=== PATIENT | female | born 1985 | race Caucasian/White ===

== ENCOUNTER 2018-07-05 03:51 | Emergency (ER) | END 2018-07-05 06:32 | disposition home or self-care (01) ==

== ENCOUNTER 2019-03-19 16:24 | Emergency (ER) | payer MEDICAID ==
[~2019-03-19] VITALS: Wt 104.9 kg
[~2019-03-19 16:24] MED LIST: CARI350T; CIPR500T4 PO; HYDR-3980 PO; NORCO; ONDA4TAB14 PO
[2019-03-19] MEDS ORDERED: KETOROLAC 30 MG INJ IM STA (16:58)
--- NOTE | 2019-03-19 17:17 | ERD ---
ER Documentation Chief Complaint Chief Complaint RIGHT UPPER QUADRANT SINCE THIS MORNING. NO N/V. NO DIARRHEA. HPI 33-year-old female with no reported past medical surgical history who presents with complaint of right upper quadrant abdominal pain since this morning. She denies associated fevers, chills, nausea, vomiting, diarrhea, radiation of pain, urinary symptoms, vaginal bleeding or discharge. Having regular bowel movements and passing gas without issue. No reported sick contacts or new medication use. Has distant history of gallstones proximally 8 years ago during . Has not had any issues since that time and thus has not had any further evaluation by specialist. Reports last menstrual. About 2 days ago and reported as normal. She otherwise is without complaint and nontoxic-appearing at the time of evaluation with normal triage vital signs. Denies any drug or alcohol abuse. ROS All systems reviewed and are negative except as per history of present illness. Medications Home Meds Active Scripts Naproxen* (Naprosyn*) 500 Mg Tablet, 500 MG PO BID PRN for PAIN AND/OR INFLAMMATION, #30 TAB Prov:NELSY FREIRE PA-C 03/19/19 Tramadol HCl (Tramadol HCl) 50 Mg Tablet, 50 MG PO Q4 PRN for PAIN, #20 TAB Prov:NELSY FREIRE PA-C 03/19/19 Ondansetron (Ondansetron Odt) 4 Mg Tab.rapdis, 4 MG PO Q6H PRN for NAUSEA AND/OR VOMITING, #10 TAB Prov:NELLA CARTWRIGHT 07/05/18 Hydrocodone/Acetaminophen (Mesa 10-325 Tablet) 1 Each Tablet, 1 TAB PO Q6H PRN for PAIN, #20 TAB Prov:NELLA CARTWRIGHT 07/05/18 Ciprofloxacin Hcl* (Ciprofloxacin Hcl*) 500 Mg Tablet, 500 MG PO BID for 5 Days, TAB Prov:NELLA CARTWRIGHT 07/05/18 Reported Medications Carisoprodol* (Soma*) 350 Mg Tablet 04/20/12 [Mesa] No Conflict Check 04/20/12 Allergies Allergies: Coded Allergies: No Known Allergy (Verified , 06/01/14) PMhx/Soc History of Surgery: No Anesthesia Reaction: No Hx Neurological Disorder: No Hx Respiratory Disorders: No Hx Cardiac Disorders: No Hx Psychiatric Problems: No Hx Miscellaneous Medical Probl: Yes (GALL STONE) Hx Alcohol Use: No Hx Substance Use: No Hx Tobacco Use: No FmHx Family History: No diabetes, No coronary disease, No other Physical Exam Vitals Vital Signs Date Temp Pulse Resp B/P (MAP) Pulse Ox O2 O2 Flow FiO2 Time Delivery Rate 03/19/19 97.8 75 18 139/75 100 16:28 (96) Physical Exam I have reviewed the triage vital signs. Const: Well nourished, well developed, appears stated age, obese Eyes: PERRL, no conjunctival injection HENT: NCAT, Neck supple without meningismus CV: RRR, Warm, well-perfused extremities RESP: CTAB, Unlabored respiratory effort GI: soft, tender to deep palpation to right upper quadrant, no rebound or guarding, no CVA tenderness, non-distended, no masses MSK: No gross deformities appreciated Skin: Warm, dry. No rashes Neuro: grossly non focal Psych: Appropriate mood and affect. Result Diagram: 03/19/19 1705 03/19/19 1705 Results 24 hrs Laboratory Tests Test 03/19/19 17:05 03/19/19 17:10 White Blood Count 8.5 10^3/ul Red Blood Count 4.27 10^6/ul Hemoglobin 11.5 g/dl Hematocrit 36.4 % Mean Corpuscular Volume 85.2 fl Mean Corpuscular Hemoglobin 26.9 pg Mean Corpuscular Hemoglobin Concent 31.6 g/dl Red Cell Distribution Width 14.8 % Platelet Count 232 10^3/UL Mean Platelet Volume 11.4 fl Immature Granulocytes % 0.200 % Neutrophils % 59.8 % Lymphocytes % 29.6 % Monocytes % 6.6 % Eosinophils % 3.1 % Basophils % 0.7 % Nucleated Red Blood Cells % 0.0 /100WBC Immature Granulocytes # 0.020 10^3/ul Neutrophils # 5.1 10^3/ul Lymphocytes # 2.5 10^3/ul Monocytes # 0.6 10^3/ul Eosinophils # 0.3 10^3/ul Basophils # 0.1 10^3/ul Nucleated Red Blood Cells # 0.0 10^3/ul Urine Color YELLOW Urine Clarity SLIGHTLY CLOUDY Urine pH 5.0 Urine Specific Woodrow 1.024 Urine Ketones NEGATIVE mg/dL Urine Nitrite NEGATIVE mg/dL Urine Bilirubin NEGATIVE mg/dL Urine Urobilinogen NEGATIVE mg/dL Urine Leukocyte Esterase NEGATIVE Gladis/ul Urine Microscopic RBC 1 /HPF Urine Microscopic WBC 4 /HPF Urine Squamous Epithelial Cells FEW /HPF Urine Mucus FEW /HPF Urine Hemoglobin NEGATIVE mg/dL Urine Glucose NEGATIVE mg/dL Urine Total Protein NEGATIVE mg/dl Sodium Level 141 mmol/L Potassium Level 4.4 mmol/L Chloride Level 106 mmol/L Carbon Dioxide Level 28 mmol/L Anion Gap 7 Blood Urea Nitrogen 11 mg/dl Creatinine 0.72 mg/dl Est Glomerular Filtrat Rate mL/min > 60 mL/min Glucose Level 95 mg/dl Calcium Level 9.5 mg/dl Total Bilirubin 0.4 mg/dl Direct Bilirubin 0.00 mg/dl Indirect Bilirubin 0.4 mg/dl Aspartate Amino Transf (AST/SGOT) 24 IU/L Alanine Aminotransferase (ALT/SGPT) 38 IU/L Alkaline Phosphatase 131 IU/L Total Protein 7.1 g/dl Albumin 3.9 g/dl Globulin 3.20 g/dl Albumin/Globulin Ratio 1.21 Lipase 64 U/L Serum HCG, Qualitative NEGATIVE POC Beta HCG, Qualitative POSITIVE Current Medications Medications Dose Sig/Nancy Start Time Status Last (Trade) Ordered Route PRN Stop Time Admin Dose Reason Admin Ketorolac 30 mg ONCE STAT 03/19/19 DC Tromethamine IM 16:58 03/19/19 (Toradol) 17:01 Procedures/MDM 33 year-old female non- woman presenting with RUQ abdominal pain concerning for bladder disease given location of abdominal pain and risk factors. Considered ectopic patient's blood test negative. Considered causes of female-specific abdominal pain unrelated to (e.g., pelvic inflammatory disease with or without tubo-ovarian abscess, Togj-Lpax-Ictpwj, etc.). Urine POC positive. Despite positive test highly doubt ectopic given exam and pain localized to right upper quadrant with no abdominal pelvic symptoms or findings on exam. Also considered causes of abdominal pain that are not gender-specific (e.g., appendicitis, volvulus, small bowel obstruction, mesenteric adenitis, acute cholecystitis/choledocholithiasis and other biliary pathology, etc.). Patient well-appearing with normal vital signs. Laboratory testing and imaging here reviewed and normal. Patient given strict return precautions for worsening pain, inability to eat/drink, fevers (temperature over 100.4F), or other concerns. Patient instructed to follow up with their primary doctor and is agreeable; all questions were answered. Patient advised to follow-up with her PMD for referral to GI specialist/surgeon. Patient agreeable and to make arrangements with her primary care provider. Will discharge with appropriate pain medication antiemetics ED course: Gallbladder ultrasound with multiple gallstones, nonobstructing, no evidence of cholecystitis UA unremarkable Labs: Unremarkable, no WBC count, lipase within normal limits, liver function within normal limits, renal function normal DISPOSITION PLAN: We discussed follow up with the patient's primary care doctor within 24 to 48 hours. Patient counseled regarding my diagnostic impression and care plan. Prior to discharge all questions answered. Pt agrees with treatment plan and understands strict return precautions. Precautionary instructions provided including instructions to return to the ER if not improving or for any worsening or changing symptoms or concerns. Disclaimer: Inadvertent spelling and grammatical errors are likely due to EHR/dictation software use and do not reflect on the overall quality of patient care. Also, please note that the electronic time recorded on this note does not necessarily reflect the actual time of the patient encounter. Departure Diagnosis: Primary Impression: Abdominal pain Condition: Stable NELSY FREIRE PA-C Mar 19, 2019 17:17
[2019-03-19] MEDS ORDERED: TRAM50TA2 PO (18:22)
[2019-03-19] MEDS ORDERED: NAPR-985 PO (18:22)
[2019-03-19] MEDS ORDERED: ONDA4TAB14 PO (18:31)
[2019-03-19 18:46] VITALS: BP 136/74; PULSE 74; RESP 16
== END 2019-03-19 18:46 | disposition home or self-care (01) ==
LOC: FTE 16:24
DX: R10.11 Right upper quadrant pain (principal)
CPT/HCPCS: 36415; 76705; 80053; 81001; 81003; 81025; 83690; 84703; 85025; J1885

== ENCOUNTER 2019-05-21 17:22 | Emergency (ER) | payer MEDICAID ==
[~2019-05-21] VITALS: Ht 162.6 cm; Wt 104.4 kg
[~2019-05-21 17:22] MED LIST changes: +CEPH-443 PO; +NAPR-985 PO; +TRAM50TA2 PO
[2019-05-21 17:40] VITALS: RESP 20; Ht 162.6 cm; Wt 104.4 kg
[2019-05-21 20:22] VITALS: BP 123/74; PULSE 71
--- NOTE | 2019-05-22 12:43 | ERD ---
ER Documentation Chief Complaint Chief Complaint rashes - possible insect bites ; RLQ pain HPI This is a 33-year-old female presenting to the emergency department complaining of insect bites scattered on her body as well as right suprapubic pain. Her last menstrual cycle was 04-09-2019. She is G4, P3 LC 3 A0. She is reportedly 6 weeks . Her right suprapubic pain currently rated 0/10 in severity and intermittent. She took no medication for relief of symptoms. She denies any vaginal bleeding. She denies any fevers, back pain, or other symptoms currently. ROS All systems reviewed and are negative except as per history of present illness. Medications Home Meds Active Scripts Cephalexin* (Keflex*) 500 Mg Capsule, 500 MG PO TID for 7 Days, CAP Prov:NELLA PEÑA PA-C 05/21/19 Ondansetron (Ondansetron Odt) 4 Mg Tab.rapdis, 4 MG PO Q6H PRN for NAUSEA AND/OR VOMITING, #10 TAB Prov:NELSY FREIRE PA-C 03/19/19 Naproxen* (Naprosyn*) 500 Mg Tablet, 500 MG PO BID PRN for PAIN AND/OR INFLAMMATION, #30 TAB Prov:NELSY FREIRE PA-C 03/19/19 Tramadol HCl (Tramadol HCl) 50 Mg Tablet, 50 MG PO Q4 PRN for PAIN, #20 TAB Prov:NELSY FREIRE PA-C 03/19/19 Ondansetron (Ondansetron Odt) 4 Mg Tab.rapdis, 4 MG PO Q6H PRN for NAUSEA AND/OR VOMITING, #10 TAB Prov:NELLA CARTWRIGHT 07/05/18 Hydrocodone/Acetaminophen (Royal 10-325 Tablet) 1 Each Tablet, 1 TAB PO Q6H PRN for PAIN, #20 TAB Prov:NELLA CARTWRIGHT 07/05/18 Ciprofloxacin Hcl* (Ciprofloxacin Hcl*) 500 Mg Tablet, 500 MG PO BID for 5 Days, TAB Prov:NELLA CARTWRIGHT 07/05/18 Reported Medications Carisoprodol* (Soma*) 350 Mg Tablet 04/20/12 [Royal] No Conflict Check 04/20/12 Allergies Allergies: Coded Allergies: No Known Allergy (Verified , 06/01/14) PMhx/Soc Medical and Surgical Hx: pt denies Surgical Hx History of Surgery: No Anesthesia Reaction: No Hx Neurological Disorder: No Hx Respiratory Disorders: No Hx Cardiac Disorders: No Hx Psychiatric Problems: No Hx Miscellaneous Medical Probl: Yes (GALL STONE) Hx Alcohol Use: No Hx Substance Use: No Hx Tobacco Use: No Smoking Status: Never smoker Physical Exam Vitals Vital Signs Date Temp Pulse Resp B/P (MAP) Pulse Ox O2 O2 Flow FiO2 Time Delivery Rate 05/21/19 71 123/74 20:22 (90) 05/21/19 98.4 76 20 137/70 100 17:40 (92) Physical Exam Const: No acute distress Head: Atraumatic Eyes: Normal Conjunctiva ENT: Normal External Ears, Nose and Mouth. Neck: Full range of motion. No meningismus. Resp: Clear to auscultation bilaterally Cardio: Regular rate and rhythm, no murmurs Abd: Soft, non tender, non distended. Normal bowel sounds Skin: No petechiae or rashes Back: No midline or flank tenderness Ext: No cyanosis, or edema Neur: Awake and alert Psych: Normal Mood and Affect Result Diagram: 05/21/19190105/21/191901 Results 24 hrs Laboratory Tests Test 05/21/19 19:02 White Blood Count 10.9 10^3/ul Red Blood Count 4.51 10^6/ul Hemoglobin 12.3 g/dl Hematocrit 39.1 % Mean Corpuscular Volume 86.7 fl Mean Corpuscular Hemoglobin 27.3 pg Mean Corpuscular Hemoglobin Concent 31.5 g/dl Red Cell Distribution Width 14.6 % Platelet Count 244 10^3/UL Mean Platelet Volume 11.3 fl Immature Granulocytes % 0.400 % Neutrophils % 65.6 % Lymphocytes % 24.3 % Monocytes % 6.4 % Eosinophils % 2.9 % Basophils % 0.4 % Nucleated Red Blood Cells % 0.0 /100WBC Immature Granulocytes # 0.040 10^3/ul Neutrophils # 7.1 10^3/ul Lymphocytes # 2.6 10^3/ul Monocytes # 0.7 10^3/ul Eosinophils # 0.3 10^3/ul Basophils # 0.0 10^3/ul Nucleated Red Blood Cells # 0.0 10^3/ul Urine Color YELLOW Urine Clarity SLIGHTLY CLOUDY Urine pH 5.0 Urine Specific Mccammon 1.024 Urine Ketones NEGATIVE mg/dL Urine Nitrite NEGATIVE mg/dL Urine Bilirubin NEGATIVE mg/dL Urine Urobilinogen NEGATIVE mg/dL Urine Leukocyte Esterase 1+ Gladis/ul Urine Microscopic RBC 2 /HPF Urine Microscopic WBC 6 /HPF Urine Squamous Epithelial Cells FEW /HPF Urine Mucus FEW /HPF Urine Hemoglobin NEGATIVE mg/dL Urine Glucose NEGATIVE mg/dL Urine Total Protein NEGATIVE mg/dl Sodium Level 140 mmol/L Potassium Level 3.8 mmol/L Chloride Level 105 mmol/L Carbon Dioxide Level 25 mmol/L Anion Gap 10 Blood Urea Nitrogen 10 mg/dl Creatinine 0.64 mg/dl Est Glomerular Filtrat Rate mL/min > 60 mL/min Glucose Level 87 mg/dl Calcium Level 9.6 mg/dl Total Bilirubin 0.3 mg/dl Direct Bilirubin 0.00 mg/dl Indirect Bilirubin 0.3 mg/dl Aspartate Amino Transf (AST/SGOT) 26 IU/L Alanine Aminotransferase (ALT/SGPT) 34 IU/L Alkaline Phosphatase 126 IU/L Total Protein 8.1 g/dl Albumin 4.5 g/dl Globulin 3.60 g/dl Albumin/Globulin Ratio 1.25 Beta HCG, Quantitative 92702.0 mIU/ml [place] [address] Radiology Main Line: [phone] DIAGNOSTIC IMAGING REPORT Patient: ABIGAIL LOPEZ : 1985 Age: 33 Sex: F MR #: [id number] DOS: 05/21/19 1853 Ordering MD: NELLA PEÑA PA-C Location: [facility] Room/Bed: PROCEDURE: US Obstetrical 1st Trimester CLINICAL INDICATION: with right-sided pelvic pain TECHNIQUE: Multiple real-time images were acquired of the patient's maternal abdomen utilizing a curved array transducer. COMPARISON: None FINDINGS: The uterus is anteverted and normal in size measuring . There is a well implanted gestational sac within the fundus of the uterus with a mean sac diameter of 2.10 cm which corresponds to a gestational sac age of 6 weeks 6 days. A yolk sac is identified. There is a single pole with a crown-rump length of 0.52 cm which corresponds to a gestational age of 6 weeks 2 days plus or minus 3 days. There is positive cardiac activity being at 124 beats per minute. The right ovary measures 3.2 x 2.5 x 2.0 cm and appears normal. The left ovary measures 2.8 x 2.1 x 1.4 cm and appears normal. Vascular flow is demonstrated in each ovary on Doppler. No adnexal mass or free fluid is identified IMPRESSION: 1. Single live intrauterine fetus which by ultrasound corresponds to a gestational age of 6 weeks 4 days plus or minus 3 days. The estimated date of delivery based on today's sonogram is 01/10/2020. 2. The heart rate is 124 bpm. 3. Normal appearing ovaries with each demonstrating vascular flow on Doppler. 4. No adnexal mass or free fluid is evident. Physician Giovanny Date Time Electronically viewed and signed by Physician Giovanny on 05/21/2019 19:53 RH/ CC: NELLA PEÑA PA-C [phone] Procedures/MDM This is a 33-year-old female presenting to the emergency department complaining of right pelvic pain. She is reportedly 6 weeks . Her CBC and CMP are within normal limits. No evidence of significant leukocytosis or anemia. No evidence of electrolyte imbalance or kidney or liver failure. Urinalysis shows 1+ leukocyte esterase concerning for mild urinary tract infection. Ultrasound reveals single live intrauterine gestation of 6 weeks and 4 days. Low suspicion for ectopic , tubo-ovarian abscess, ovarian tor anil, or other emergent process. Patient will be discharged home in stable condition with prescriptions to further treat her symptoms at home. She was advised to have 24 to 48-hour follow-up with her [facility] physician and return here immediately for any new or concerning symptoms. Shared my medical decision making with the patient and she understands and agrees with the plan. Departure Diagnosis: Primary Impression: Pelvic pain complicating Additional Impression: UTI (urinary tract infection) Condition: Fair Patient Instructions: Understanding Urinary Tract Infections (UTIs), Pelvic Pain In : Unclear (2-3 Trimester) [facility] Usted se lackey hecho un examen mdico de control que le indica que no est en bee condicin que requiera tratamiento urgente en el Departamento de Emergencia. Un estudio ms profundo y el tratamiento de bronson condicin pueden esperar sin ningn riesgo hasta que usted sea atendida/o en el consultorio de bronson mdico o bee clnica. Es responsabilidad suya arreglar bee cisco para el seguimiento del sundar. MANEJO DE CONDICIONES NO URGENTES EN EL FUTURO 1) Si usted tiene un mdico de atencin primaria: Usted debera llamar a bronson mdico de atencin primaria antes de venir al de partamento de emergencia. Despus de las horas de consultorio, bronson doctor o bronson asociado/a est disponible por telfono. El mdico o enfermero de zulema en el servicio telefnico puede asesorarle por alix medio para atender el problema, o sundar contrario se puede programar bee cisco. 2) Si usted no tiene un mdico de atencin primaria: Llame al mdico o clnica de referencia que aparece abajo michael las horas de consultorio para hacer bee cisco para que le vean. CLINICAS: [facility] [phone] [facility]., [facility] [phone] [facility] [phone] [address] [facility]. [facility] [phone] [facility]. [place] [address] [phone] [facility]. [phone] [place] [facility] [place] [id number] [facility] [address] [place] [address] OFFICE FAX , [place] [address] [place] [address] [address] KING, [place] [address] [place] [address] [address] LEBLANC, [facility] [address] [address] [facility], [address], [place] [address] [address] CUETO, [facility] [address] [place] [address] [facility] [address] [place] [address] [facility] [id number] - [address] MORILLO, JANETT [address], [place] [address] DR BARNES, SILKE [address] [facility]. [address], [place] [address] DR WARE, [facility] [address] [place], [place] [phone] Additional Instructions: Llame al doctor MAANA y kamran bee CISCO PARA DENTRO DE 1-2 YAP.Dgale a la secretaria que nosotros le instruimos hacer esta cisco.Avise o llame si bronson condicin se empeora antes de la cisco. Regresa aqui si peor o no mejor. NELLA PEÑA PA-C May 22, 2019 12:43
== END 2019-05-21 20:23 | disposition home or self-care (01) ==
LOC: FTE 17:22
DX: O26.891 Other specified pregnancy related conditions, first trimester (principal); R10.2 Pelvic and perineal pain; O23.41 Unspecified infection of urinary tract in pregnancy, first trimester; Z3A.01 Less than 8 weeks gestation of pregnancy
CPT/HCPCS: 36415; 76801; 80053; 81001; 84702; 85025; Z7502